=== PATIENT | female | born 1935 | race Caucasian/White ===

== ENCOUNTER 2020-05-11 11:53 | Day surgery (SDC) | payer MEDICARE ==
[2020-05-10 14:17] VITALS: BP 177/90
[2020-05-11] VITALS (13 sets, daily range): BP systolic 148–172; BP diastolic 73–97
[~2020-05-11] VITALS: Ht 152.4 cm; Wt 48.5 kg
[~2020-05-11 11:53] MED LIST: AMLO10TA7 PO; APIX2.5T PO; ARED 2 PO; CETI-89 PO; DOCU100T9 PO; FENO160T16 PO; FOLI0.8C PO; IRO PO; L.AC1CAP6 PO; LACTATED RINGERS 1000ML 1,000 ML IV ONE; LOSA100T58 PO; METO25TA6 PO; MONT10TA26 PO; MVI PO; OMEP-420 PO; SERT25TA5 PO; VITAMIN B12 PO; VITAMIN D PO
[2020-05-11] MEDS ORDERED: LIDOCAINE HCL-MPF 1% 5ML AMP IJ ONE (12:58)
[2020-05-11] MEDS ORDERED: MIDAZOLAM HCL 1 MG/ML 2ML VIAL ONE (13:10)
[2020-05-11] MEDS ORDERED: ONDANSETRON HCL 4 MG/2 ML VIAL ONE (13:12)
[2020-05-11] MEDS ORDERED: IOPAMIDOL 10 ML VIAL ONE (13:19)
== END 2020-05-11 14:50 | disposition home or self-care (01) ==
LOC: DAH 11:53
PROVIDERS: ATTEND Family Medicine Sports Medicine
DX: M51.36 Other intervertebral disc degeneration, lumbar region (principal); Z20.828 Contact with and (suspected) exposure to other viral communicable diseases; M41.80 Other forms of scoliosis, site unspecified; M47.816 Spondylosis without myelopathy or radiculopathy, lumbar region; I10 Essential (primary) hypertension; G89.29 Other chronic pain; M47.9 Spondylosis, unspecified; Z90.49 Acquired absence of other specified parts of digestive tract; Z98.890 Other specified postprocedural states; Z85.038 Personal history of other malignant neoplasm of large intestine; Z88.8 Allergy status to other drugs, medicaments and biological substances; Z88.1 Allergy status to other antibiotic agents
CPT/HCPCS: 62323; 72100; 93005; A4215 ×2; A4221; A4222; A4223; A4663; C9803; J1040; J2250; J2405; J3490; J7120; Q9966; U0003; 36415

== ENCOUNTER 2020-12-14 12:06 | Day surgery (SDC) | payer MEDICARE ==
[2020-12-13 15:01] VITALS: BP 138/81
[~2020-12-14] VITALS: Ht 152.4 cm; Wt 48.5 kg
[~2020-12-14 12:06] MED LIST changes: +ACET-2743 PO; +AMLO-258 PO; -AMLO10TA7 PO; -ARED 2 PO; +BACL5TAB PO; +BETA1TAB20 PO; -CETI-89 PO; -LACTATED RINGERS 1000ML 1,000 ML IV ONE; -MONT10TA26 PO; +MONT10TA32 PO; +ROSU5TAB12 PO; +SERT-438 PO; -SERT25TA5 PO; +TRAZ-185 PO
[2020-12-14 12:10] VITALS: BP 186/83
[2020-12-14] MEDS ORDERED: IOPAMIDOL 10 ML VIAL ONE (12:40)
[2020-12-14] MEDS ORDERED: LACTATED RINGERS 1000ML 1,000 ML IV ONE (13:16)
[2020-12-14] MEDS ORDERED: LIDOCAINE HCL MPF 1% 5ML VIAL ONE (13:50)
[2020-12-14] MEDS ORDERED: DEXAMETHASONE SOD PHOSPHATE 4 MG/ML 1ML VIAL ONE (13:50)
[2020-12-14] MEDS ORDERED: SODIUM CHLORIDE 0.9% 10 ML VIAL ONE ×2 (13:56→14:19)
[2020-12-14] MEDS ORDERED: MIDAZOLAM HCL 1 MG/ML 2ML VIAL ONE (14:07)
[2020-12-14] MEDS ORDERED: ONDANSETRON HCL 4 MG/2 ML VIAL ONE (14:07)
[2020-12-14] MEDS ORDERED: METOPROLOL TARTRATE 1 MG/ML 5ML VIAL IV ONE (14:31)
[2020-12-14 14:35] VITALS: BP 195/89
[2020-12-14 14:50] VITALS: BP 160/83
[2020-12-14 15:05] VITALS: BP 153/83
[2020-12-14 15:20] VITALS: BP 152/86
== END 2020-12-14 15:25 | disposition home or self-care (01) ==
LOC: DAH 12:06
PROVIDERS: ATTEND Family Medicine Sports Medicine
DX: M51.16 Intervertebral disc disorders with radiculopathy, lumbar region (principal); I10 Essential (primary) hypertension; M41.80 Other forms of scoliosis, site unspecified; G89.29 Other chronic pain; Z20.822 Contact with and (suspected) exposure to COVID-19; Z79.899 Other long term (current) drug therapy
CPT/HCPCS: 62323; A4215; A4221; A4222; A4223; A4606; A4663; C9803; J1100; J2250; J2405; J3490 ×2; J7120; Q9966; U0003; 62320; 77003; 99156; 99157

== ENCOUNTER → 2023-02-06 | Outpatient (CLI) | payer MEDICARE ==
[~2023-02-06] MED LIST changes: +IOHEXOL 350 MG/ML 100ML INFUS..BTL IV ONE; -LOSA100T58 PO; +LOSA100T59 PO; +MONT-39 PO; -MONT10TA32 PO
== END | disposition home or self-care (01) ==
LOC: RAH 10:35
PROVIDERS: ATTEND Internal Medicine Cardiovascular Disease
DX: I25.119 Atherosclerotic heart disease of native coronary artery with unspecified angina pectoris (principal); I51.7 Cardiomegaly; M47.815 Spondylosis without myelopathy or radiculopathy, thoracolumbar region; M41.84 Other forms of scoliosis, thoracic region
CPT/HCPCS: 75574; Q9967

== ENCOUNTER 2023-04-15 09:25 | Emergency (ER) | payer MEDICARE ==
[~2023-04-15] VITALS: Ht 152.4 cm; Wt 48.5 kg
[~2023-04-15 09:25] MED LIST changes: -IOHEXOL 350 MG/ML 100ML INFUS..BTL IV ONE
[2023-04-15 09:26] VITALS: BP 162/95; PULSE 75; RESP 16
[2023-04-15] MEDS ORDERED: 0.9% NACL 500ML IV.SOLN 456 ML IV ONE (10:00)
[2023-04-15] MEDS ORDERED: PANTOPRAZOLE 40 MG/VIAL IVP ONE (10:00)
[2023-04-15] MEDS ORDERED: ONDANSETRON 4MG INJ IVP ONE (10:00)
[2023-04-15 10:16] LABS: HEMATOCRIT 40.5 % (36-48); MEAN CORPUSCULAR HEMOGLOBIN 30.2 pg (27.0-33.0); MEAN CORPUSCULAR HGB CONC 32.8 g/dL (32.0-36.0); MEAN CORPUSCULAR VOLUME 91.8 fL (79-99); RED BLOOD CELL COUNT(AUTO) 4.41 MIL/uL (4.00-5.50); WHITE BLOOD COUNT (AUTO) 6.1 K/uL (4.8-10.8)
[2023-04-15 10:28] LABS: CREATININE 0.7 mg/dL (0.5-1.5); POTASSIUM 3.7 mmol/L (3.5-5.1)
[2023-04-15 10:32] LABS: ALBUMIN 4.5 g/dL (3.5-5.0); BILIRUBIN,TOTAL 0.4 mg/dL (0.2-1.0); TOTAL PROTEIN, SERUM 7.6 g/dL (6.0-8.3)
[2023-04-15] MEDS ORDERED: IOHEXOL-350 75 ML VIAL IV ONE (13:39)
[2023-04-15 14:44] LABS: APPEARANCE,URINE CLEAR (CLEAR); BILIRUBIN,URINE NEGATIVE (NEGATIVE); COLOR,URINE LIGHT-YELLOW (YELLOW); GLUCOSE, URINE (UA) NEGATIVE (NEGATIVE); KETONES,URINE NEGATIVE (NEGATIVE); LEUKOCYTE ESTERASE ,URINE 250 Leu/uL (NEGATIVE); NITRATE,URINE NEGATIVE (NEGATIVE); OCCULT BLOOD,URINE NEGATIVE (NEGATIVE); PROTEIN,URINE 10 mg/dL (NEGATIVE); UROBILINOGEN,URINE 0.2 mg/dL (0.2-1.0)
[2023-04-15 14:55] LABS: ADD UA MICROSCOPIC YES
[2023-04-15 14:59] LABS: BACTERIA,URINE Moderate /HPF (None Seen); MUCUS,URINE Few LPF (None Seen); SQUAMOUS EPITHELIAL CELL,UR Few /HPF (0-2)
[2023-04-15] MEDS ORDERED: 0.9% NACL 500ML IV.SOLN 500 ML IV ONE (15:00)
[2023-04-15] MEDS ORDERED: FOSF3PAC4 PO (15:11)
[2023-04-15] MEDS ORDERED: CEFTRIAXONE 1G VIAL IVPB ONE (15:30)
== END 2023-04-15 16:17 | disposition home or self-care (01) ==
LOC: EDH 09:25
DX: N30.00 Acute cystitis without hematuria (principal); R10.32 Left lower quadrant pain; M41.9 Scoliosis, unspecified; I10 Essential (primary) hypertension; Z79.01 Long term (current) use of anticoagulants; Z79.899 Other long term (current) drug therapy; Z88.1 Allergy status to other antibiotic agents; Z88.2 Allergy status to sulfonamides; Z90.49 Acquired absence of other specified parts of digestive tract
CPT/HCPCS: 99285; 74177; 96374; 96375; 80053; 83690; 85027; 87088; 81001; 36415; 93005; J7040; J0696; J2405; C9113; Q9967

== ENCOUNTER → 2023-06-19 | Outpatient (CLI) | payer MEDICARE ==
[~2023-06-19] MED LIST changes: +FOSF3PAC4 PO
== END | disposition home or self-care (01) ==
LOC: RAH 12:12
PROVIDERS: ATTEND Physician Assistant
DX: M41.85 Other forms of scoliosis, thoracolumbar region (principal); N26.1 Atrophy of kidney (terminal); M47.814 Spondylosis without myelopathy or radiculopathy, thoracic region; M25.80 Other specified joint disorders, unspecified joint; M89.9 Disorder of bone, unspecified
CPT/HCPCS: 78306; A9503

== ENCOUNTER → 2023-06-20 | Outpatient (CLI) | payer MEDICARE | END | disposition home or self-care (01) | LOC: RAH 14:24 | PROVIDERS: ATTEND Physician Assistant | DX: M47.814 Spondylosis without myelopathy or radiculopathy, thoracic region (principal); M41.84 Other forms of scoliosis, thoracic region; M48.04 Spinal stenosis, thoracic region; M89.9 Disorder of bone, unspecified | CPT/HCPCS: 72128 ==